=== PATIENT | male | born 1955 | race African-American/Black ===

== ENCOUNTER 2016-06-22 09:20 | Emergency (ER) | payer MEDICARE ==
[2015-06-02 09:17] VITALS: BMI 37.7
[~2016-06-22 09:20] MED LIST: LISINOPRIL2.5 MG; PRILOSEC20 MG; TENORETIC 50 TA1 TAB PO; ZESTRIL10 MG PO
[2016-06-22 09:56] LABS: BASOPHILS 0.3 % (0.0-2.0); EOSINOPHILS 1.7 % (0-7); HEMATOCRIT 42.3 % (42.0-54.0); HEMOGLOBIN 14.2 g/dL (13.5-17.5); IMMATURE GRANULOCYTES 0.1 % (0-5); LYMPHOCYTES 27.7 % (15-50); MCH 30.7 pg (26.0-34.0); MCHC 33.6 g/dL (31.0-37.0); MCV 91.6 fL (80.0-100.0); MEAN PLATELET VOLUME 9.1 fL (7.4-10.4); MONOCYTES 6.6 % (2-11); NEUTROPHILS 63.6 % (40-80); PLATELET COUNT 229 10x3/uL (130-400); RBC 4.62 10x6/uL (4.20-6.10); RDW 13.3 % (11.5-14.5); WBC 7.8 10x3/uL (4.8-10.8)
[2016-06-22 10:13] LABS: ALBUMIN 3.8 g/dL (3.4-5.0); ALKALINE PHOSPHATASE 57 U/L (46-116); ALT (SGPT) 18 U/L (10-68); BILIRUBIN - TOTAL 0.91 mg/dL (0.2-1.3); CALC OSMOLALITY 278 mosm/kg (275-300); CALCIUM 8.7 mg/dL (8.5-10.1); CARBON DIOXIDE 25.8 mmol/L (21.0-32.0); CHLORIDE - SERUM 105 mmol/L (98-107); CREATININE - SERUM 1.5 mg/dL (0.6-1.3); GLUCOSE 107 mg/dL (74-106); POTASSIUM - SERUM 3.8 mmol/L (3.5-5.1); PROTEIN - SERUM 7.8 g/dL (6.4-8.2); SODIUM 139 mmol/L (136-145); UREA NITROGEN 16 mg/dL (7-18); eGFR NON AFRICAN AMERICAN 51 mL/min (90-120)
[2016-06-22 10:15] LABS: KETONE - SERUM NEGATIVE (NEGATIVE)
== END 2016-06-22 11:52 | disposition home or self-care (01) ==
LOC: D.ER 09:20
PROVIDERS: Emergency Medicine
DX: I10 Essential (primary) hypertension (principal); M50.30 Other cervical disc degeneration, unspecified cervical region; M54.12 Radiculopathy, cervical region

== ENCOUNTER 2017-11-13 06:15 | Emergency (ER) | payer MEDICARE ==
[~2017-11-13] VITALS: Ht 180.3 cm; Wt 127.3 kg
[2017-11-13 06:18] VITALS: Ht 180.3 cm; Wt 127.3 kg
[2017-11-13 07:09] LABS: BASOPHILS 0.4 % (0-2); EOSINOPHILS 2.9 % (0-7); HEMATOCRIT 36.9 % (42.0-54.0); HEMOGLOBIN 12.2 g/dL (13.5-17.5); IMMATURE GRANULOCYTES 0.1 % (0-5); MCH 30.6 pg (26.0-34.0); MCHC 33.1 g/dL (31.0-37.0); MCV 92.5 fL (80.0-100.0); MEAN PLATELET VOLUME 9.2 fL (7.4-10.4); MONOCYTES 6.8 % (2-11); NEUTROPHILS 60.8 % (40-80); PLATELET COUNT 232 10x3/uL (130-400); RBC 3.99 10x6/uL (4.20-6.10); RDW 13.1 % (11.5-14.5); WBC 7.2 10x3/uL (4.8-10.8)
[2017-11-13 07:13] LABS: ALBUMIN 3.2 g/dL (3.4-5.0); ANION GAP 9.2 mmol/L (8-16); BILIRUBIN - TOTAL 0.64 mg/dL (0.2-1.3); CALCIUM 8.1 mg/dL (8.5-10.1); CARBON DIOXIDE 27.7 mmol/L (21.0-32.0); CREATININE - SERUM 1.7 mg/dL (0.6-1.3); INR 1.01 (0.85-1.17); MAGNESIUM - SERUM 1.9 mg/dL (1.8-2.4); POTASSIUM - SERUM 3.9 mmol/L (3.5-5.1); PROTEIN - SERUM 7.2 g/dL (6.4-8.2); PROTIME 12.9 SECONDS (11.6-15.0)
[2017-11-13 07:49] VITALS: BP 158/90
== END 2017-11-13 07:50 | disposition home or self-care (01) ==
LOC: D.ER 06:15
PROVIDERS: Emergency Medicine
DX: K62.5 Hemorrhage of anus and rectum (principal)

== ENCOUNTER 2017-11-24 07:31 | Day surgery (SDC) | payer MEDICARE ==
[~2017-11-24] VITALS: Ht 180.3 cm; Wt 127.3 kg
--- NOTE | ~2017-11-24 | OP ---
PATIENT NAME: SILVANO VILLAFANA MEDICAL RECORD: [id number] :59 LOCATION:D.OPS ADMISSION DATE: SURGEON: CHINO BHAT MD DATE OF OPERATION: 11/24/2017 PREOPERATIVE DIAGNOSES: 1. Bright red blood per rectum. 2. History of colon cancer, status post right hemicolectomy. 3. Hypertension. 4. Diabetes mellitus. POSTOPERATIVE DIAGNOSES: 1. Bright red blood per rectum. 2. History of colon cancer, status post right hemicolectomy. 3. Hypertension. 4. Diabetes mellitus. PROCEDURE: Flexible sigmoidoscopy. SURGEON: Chino Bhat MD REPORT OF PROCEDURE: An Olympus endoscope was advanced through the patient's anus. We were able to pass easily through the rectum to the sigmoid colon. As we went up the colon, we were never able to make the turn at what I believe was the splenic flexure. We tried multiple different techniques, were never able to make this final move. I never visualized the patient's transverse colon. At this point, we decided just to stop any further progression as it was starting to tear the lining of the tissue in the descending colon. We got to approximately 90 cm from the anus. As we did the pullback, there were no masses, lesions, strictures, or ulcerations visualized. As we got down into the rectum and retroflexed views of the anus, there were some small internal hemorrhoids and some excoriation to the tissues, but otherwise no masses or lesions were visible. The insufflation and the scope were then removed. COMPLICATIONS: None. CONDITION: Stable. ANESTHESIA: TIVA. BLOOD LOSS: Minimal. PLAN: Will get Barium enema. Next colonoscopy in 3-5 yrs if barium enema normal. Next colonoscopy should be done by GI secondary to difficulty. TRANSINT:[id number] Voice Confirmation ID: [id number] DOCUMENT ID: [id number] OPERATIVE REPORT [id number] SILVANO VILLAFANA CHRISTIAN MD at 2258 CC: [id number] DICTATION DATE: 11/24/17 1348 RE RECORDING MIXER: 11/24/[address] [facility] 11/24/17 [place] [id number]
[2017-11-24 07:45] LABS: HEMATOCRIT 33.9 % (42.0-54.0); HEMOGLOBIN 11.6 g/dL (13.5-17.5); LYMPHOCYTES 25.4 % (15-50); MCH 30.9 pg (26.0-34.0); MCHC 34.2 g/dL (31.0-37.0); MCV 90.4 fL (80.0-100.0); NEUTROPHILS 67.1 % (40-80); PLATELET COUNT 265 10x3/uL (130-400); RBC 3.75 10x6/uL (4.20-6.10); RDW 12.7 % (11.5-14.5); WBC 6.5 10x3/uL (4.8-10.8)
[2017-11-24 08:02] LABS: INR 1.1 (0.85-1.17); PROTIME 13.8 SECONDS (11.6-15.0)
[2017-11-24 08:03] LABS: APTT 33.9 SECONDS (22.8-39.4)
[2017-11-24] MEDS ORDERED: ZESTRIL40 MG PO (08:37)
[2017-11-24 08:43] VITALS: BP 184/108; Ht 180.3 cm; Wt 127.3 kg
== END 2017-11-24 15:10 | disposition home or self-care (01) ==
LOC: D.OPS 07:31
PROVIDERS: Anesthesiology
DX: K63.89 Other specified diseases of intestine (principal); Z85.038 Personal history of other malignant neoplasm of large intestine; Z90.49 Acquired absence of other specified parts of digestive tract; I10 Essential (primary) hypertension; E11.9 Type 2 diabetes mellitus without complications; K64.8 Other hemorrhoids; Z01.812 Encounter for preprocedural laboratory examination

== ENCOUNTER → 2017-12-01 07:11 | Outpatient (CLI) | payer MEDICARE ==
[2017-11-24 08:43] VITALS: BMI 39.1
[~2017-12-01 07:11] MED LIST changes: +ZESTRIL40 MG PO
== END | disposition home or self-care (01) ==
LOC: D.RAD 07:11
DX: K62.5 Hemorrhage of anus and rectum (principal); Z85.038 Personal history of other malignant neoplasm of large intestine

== ENCOUNTER 2018-12-06 05:11 | Day surgery (SDC) | payer MEDICARE ==
[~2018-12-06] VITALS: Ht 182.9 cm; Wt 128.8 kg
[2018-12-06 05:39] LABS: BASOPHILS 0.4 % (0-2); EOSINOPHILS 1.6 % (0-7); HEMATOCRIT 34.6 % (42.0-54.0); HEMOGLOBIN 11.5 g/dL (13.5-17.5); IMMATURE GRANULOCYTES 0.1 % (0-5); LYMPHOCYTES 24.2 % (15-50); MCH 29.1 pg (26.0-34.0); MCHC 33.2 g/dL (31.0-37.0); MCV 87.6 fL (80.0-100.0); MEAN PLATELET VOLUME 8.4 fL (7.4-10.4); MONOCYTES 7.8 % (2-11); NEUTROPHILS 65.9 % (40-80); PLATELET COUNT 263 10x3/uL (130-400); RBC 3.95 10x6/uL (4.20-6.10); RDW 13.7 % (11.5-14.5); WBC 8.1 10x3/uL (4.8-10.8)
[2018-12-06 06:16] VITALS: BP 151/96; Ht 182.9 cm; Wt 128.8 kg
[2018-12-06 06:22] LABS: ANION GAP 13.4 mmol/L (8-16); CARBON DIOXIDE 25.9 mmol/L (21.0-32.0); CREATININE - SERUM 1.6 mg/dL (0.6-1.3); POTASSIUM - SERUM 4.3 mmol/L (3.5-5.1)
--- NOTE | 2018-12-06 07:54 | NUR ---
[address]CM AREA PER DR BHAT
--- NOTE | 2018-12-06 13:23 | OP ---
PATIENT NAME: SILVANO VILLAFANA MEDICAL RECORD: [id number] :57 LOCATION:D.OPS ADMISSION DATE: SURGEON: CHINO BHAT MD DATE OF OPERATION: 12/06/2018 PREOPERATIVE DIAGNOSES: 1. History of left colon cancer, status post left hemicolectomy. 2. Bright red blood per rectum. 3. Hypertension. POSTOPERATIVE DIAGNOSES: 1. History of left colon cancer, status post left hemicolectomy. 2. Bright red blood per rectum. 3. Hypertension. PROCEDURE: Colonoscopy with biopsy. SURGEON: Chino Bhat MD REPORT OF PROCEDURE: An Olympus endoscope was advanced through the patient's anus. With ease, we were able to pass through the patient's colon and into what appeared to be the cecum. The patient had a small opening that looked consistent with the appendiceal orifice. As we pulled back, there was a collection of tissue, which appeared to be a polyp. A biopsy was taken from this. Due to the angulation of this lesion, I was not able to turn the scope to see if this might actually be the ileocecal valve. Multiple attempts were made to try and turn this corner to see it better, but I was never able to, only seeing a side view. Again, a biopsy was taken and this was noted to be at about 55 cm from the anus. As we pulled back further, we did not see any masses or lesions present. The patient did have a few diverticula present. We did traverse the patient's anastomotic site from a previous ostomy takedown from the left hemicolectomy. The scope would easily pass through this and this did not appear to be significantly strictured. We continued the pull back until we got down to the patient's rectum, and at that point, we did a retroflex view which showed a couple of small internal hemorrhoids. At this point, the scope was readvanced and the insufflation was removed. Once the scope was completely out, then we inspected the patient's anus with a Hill-Porter anoscope. I could see there were 2 bands of hemorrhoids present on the right side. The right anterior and posterior internal hemorrhoidal groupings were treated with internal banding. At the conclusion of this, there was no sign of any active bleeding. COMPLICATIONS: None. CONDITION: Stable. ANESTHESIA: General endotracheal. BLOOD LOSS: Minimal. TRANSINT:[id number] Voice Confirmation ID: [id number] DOCUMENT ID: [id number] OPERATIVE REPORT [id number] SILVANO VILLAFANA CHRISTIAN MD at 1323 CC: LEANDRO MEJIA MD [id number] DICTATION DATE: 12/06/18825 MARKET BASKET MAKER: 12/06/18 1032 [facility] 12/06/18 [place] [id number] [place] [id number]
== END 2018-12-06 11:00 | disposition home or self-care (01) ==
LOC: D.OPS 05:11 → D.PAN 07:15 → D.OPS 07:15
PROVIDERS: ATTEND Surgery
DX: K62.5 Hemorrhage of anus and rectum (principal); I10 Essential (primary) hypertension; Z85.038 Personal history of other malignant neoplasm of large intestine